=== PATIENT | male | born 1990 | race Caucasian/White ===

== ENCOUNTER 2018-04-05 19:28 | Emergency (ER) | payer SELFPAY ==
[~2018-04-05] VITALS: Ht 182.9 cm; Wt 65.0 kg
[2018-04-05 19:35] VITALS: BP 133/78
== END 2018-04-05 20:06 | disposition home or self-care (01) ==
LOC: ED 20:00
DX: H01.002 Unspecified blepharitis right lower eyelid (principal)
CPT/HCPCS: 99283